=== PATIENT | female | born 1960 | race Caucasian/White ===

== ENCOUNTER 2024-09-16 12:56 | Emergency (ER) | payer BC, MEDICARE ==
[~2024-09-16] VITALS: Ht 152.4 cm; Wt 59.1 kg
[2024-09-16 13:15] VITALS: BP 109/72; PULSE 84; RESP 16; TEMP 97.8; O2SAT 98
[2024-09-16 14:16] LABS: APPEARANCE,URINE CLEAR (CLEAR); BILIRUBIN,URINE NEGATIVE (NEGATIVE); COLOR,URINE COLORLESS (YELLOW); GLUCOSE, URINE (UA) NEGATIVE (NEGATIVE); KETONES,URINE NEGATIVE (NEGATIVE); LEUKOCYTE ESTERASE ,URINE TRACE (NEGATIVE); NITRATE,URINE NEGATIVE (NEGATIVE); OCCULT BLOOD,URINE SMALL (NEGATIVE); PH,URINE 5.5 (5.0-8.0); PROTEIN,URINE NEGATIVE (NEGATIVE); SPECIFIC GRAVITIY, URINE 1.006 (1.003-1.030); UROBILINOGEN,URINE <=1.0 mg/dL (<=1.0)
[2024-09-16 14:33] LABS: BACTERIA,URINE None Seen /HPF (None Seen); RBC,URINE None Seen /HPF (0-2); SQUAMOUS EPITHELIAL CELL,UR Few /LPF (None Seen)
[2024-09-16] MEDS: CETIRIZINE HCL 10 MG TABLET PO ONE (17:05)
[2024-09-16] MEDS: OxyCODONE HCL/ACETAMINOPHEN 5-325 MG TABLET PO ONE (17:05)
[2024-09-16] MEDS ORDERED: LINACLOTIDE 290 MCG CAPSULE PO ONE (17:15)
[2024-09-16] MEDS: LINACLOTIDE 145 MCG CAPSULE PO ONE (17:28)
== END 2024-09-16 18:11 | disposition home or self-care (01) ==
LOC: EMS 12:56 → EDBD 12:56 → EMS 18:11
DX: G89.18 Other acute postprocedural pain (principal); L29.9 Pruritus, unspecified; R30.0 Dysuria; J45.909 Unspecified asthma, uncomplicated; F41.9 Anxiety disorder, unspecified; K58.9 Irritable bowel syndrome, unspecified; Z88.0 Allergy status to penicillin; Z90.710 Acquired absence of both cervix and uterus
CPT/HCPCS: 81001; 99284; Z7502; Z7610